=== PATIENT | male | born 1995 | race Caucasian/White ===

== ENCOUNTER 2017-02-11 16:44 | Emergency (ER) | payer MEDICAID ==
[~2017-02-11] VITALS: Ht 177.8 cm; Wt 73.0 kg
[2017-02-12] MEDS ORDERED: IBUPROFEN 600MG TABLET PO ONE (02:00)
[2017-02-12 04:39] VITALS: BP 125/80
== END 2017-02-12 05:00 | disposition home or self-care (01) ==
LOC: ER 16:48
DX: S80.02XA Contusion of left knee, initial encounter (principal); W22.8XXA Striking against or struck by other objects, initial encounter; Y93.89 Activity, other specified; Y92.252 Music hall as the place of occurrence of the external cause; R03.0 Elevated blood-pressure reading, without diagnosis of hypertension
CPT/HCPCS: 73562; 99284; Z7610

== ENCOUNTER 2017-03-07 05:29 | Emergency (ER) | payer MEDICAID ==
[~2017-03-07] VITALS: Ht 177.8 cm; Wt 75.0 kg
[2017-03-07] MEDS ORDERED: SODIUM CHLORIDE 0.9% 1,000 ML IV ONE (06:19)
[2017-03-07 07:04] LABS: CLARITY URINE CLEAR (CLEAR); COLOR URINE YELLOW (YELLOW); GLUCOSE URINE NEGATIVE (NEGATIVE); KETONES URINE TRACE (NEGATIVE); LEUKOCYTE ESTERASE URINE NEGATIVE (NEGATIVE); NITRITE URINE NEGATIVE (NEGATIVE); OCCULT BLOOD URINE NEGATIVE (NEGATIVE); PH URINE 6.5 (4.5-8.0); PROTEIN URINE TRACE (NEGATIVE); SPECIFIC GRAVITY URINE 1.024 (1.005-1.030)
[2017-03-07 07:15] LABS: *AMPHETAMINES SCREEN URINE NEGATIVE (NEGATIVE); *BARBITURATES SCREEN URINE NEGATIVE (NEGATIVE); *BENZODIAZEPINES SCREEN URINE PRESUMTIVE POSITIVE (NEGATIVE); *COCAINE SCREEN URINE NEGATIVE (NEGATIVE); CANNABINOID URINE SCREEN PRESUMTIVE POSITIVE (NEGATIVE); METHADONE URINE SCREEN NEGATIVE (NEGATIVE); OPIATES URINE SCREEN NEGATIVE (NEGATIVE); PHENCYCLIDINE URINE SCREEN NEGATIVE (NEGATIVE)
[2017-03-07 07:16] LABS: BASOPHILS % 0.7 % (0.0-2.0); EOSINOPHILS % 1.2 % (0.0-5.0); HEMATOCRIT. 44.4 % (42.0-52.0); HEMOGLOBIN. 15.7 g/dL (14.0-18.0); MEAN CORPUSCULAR HEMOGLOBIN 32.5 pg (28.0-32.0); MEAN CORPUSCULAR VOLUME 91.7 fL (80.0-94.0); MEAN PLATELET VOLUME 8.3 fl (7.4-10.4); MONOCYTES % 13.4 % (2.0-8.0); NEUTROPHILS % 67.7 % (40.0-76.0); PLATELET 217 x1000/uL (130-400); RED BLOOD CELL COUNT 4.84 mill/uL (4.7-6.1); RED CELL DISTRIBUTION WIDTH 11.8 % (11.6-14.6)
[2017-03-07 07:30] LABS: CARBON DIOXIDE 29 mEq/L (21-32); CHLORIDE 106 mEq/L (98-107); ETHANOL BLOOD < 10 mg/dL
[2017-03-07 10:30] VITALS: BP 120/65
== END 2017-03-07 10:52 | disposition home or self-care (01) ==
LOC: ER 05:29
DX: F13.10 Sedative, hypnotic or anxiolytic abuse, uncomplicated (principal); R56.9 Unspecified convulsions; F12.10 Cannabis abuse, uncomplicated; R51 Headache; F17.210 Nicotine dependence, cigarettes, uncomplicated
CPT/HCPCS: 36415; 70450; 80053; 80305; 81001; 85025; 96360; 99285; 99406; G0482; J7030; Z7610

== ENCOUNTER 2017-09-07 00:10 | Emergency (ER) | payer MEDICAID ==
[~2017-09-07] VITALS: Ht 172.7 cm; Wt 81.0 kg
[2017-09-07 01:22] LABS: BASOPHILS % 1.1 % (0.0-2.0); EOSINOPHILS % 2.6 % (0.0-5.0); HEMATOCRIT. 49.3 % (42.0-52.0); HEMOGLOBIN. 17.2 g/dL (14.0-18.0); LYMPHOCYTES % 35.3 % (20.0-50.0); MEAN CORPUSCULAR HEMOGLOBIN 32.2 pg (28.0-32.0); MEAN CORPUSCULAR VOLUME 92.4 fL (80.0-94.0); MEAN PLATELET VOLUME 8.5 fl (7.4-10.4); MONOCYTES % 12.3 % (2.0-8.0); NEUTROPHILS % 48.7 % (40.0-76.0); PLATELET 265 x1000/uL (130-400); RED BLOOD CELL COUNT 5.33 mill/uL (4.7-6.1); RED CELL DISTRIBUTION WIDTH 13.1 % (11.6-14.6)
[2017-09-07 01:28] LABS: CHLORIDE 108 mEq/L (98-107)
[2017-09-07 01:30] LABS: PROTHROMBIN TIME 10.6 sec (9.4-11.6)
[2017-09-07 01:38] LABS: AMMONIA 28 uMol/L (<32)
[2017-09-07 01:39] LABS: CREATINE KINASE 158 IU/L (39-308)
[2017-09-07 01:50] LABS: CARBAMAZEPINE < 0.5 ug/mL (4-12); ETHANOL BLOOD 306 mg/dL
[2017-09-07 01:59] LABS: PHENOBARBITAL < 2.1 ug/mL (15.0-40.0)
[2017-09-07] MEDS ORDERED: LEVETIRACETAM 1000MG/100ML 100 ML IV ONE (02:00)
[2017-09-07 05:44] VITALS: BP 116/72
== END 2017-09-07 05:46 | disposition home or self-care (01) ==
LOC: ER 00:10
DX: T51.0X1A Toxic effect of ethanol, accidental (unintentional), initial encounter (principal); G40.909 Epilepsy, unspecified, not intractable, without status epilepticus; E87.2 Acidosis; Z91.14 Patient's other noncompliance with medication regimen
CPT/HCPCS: 36415; 70450; 71045; 80053; 80156; 80165; 80184; 80185; 82140; 82550; 83605; 83690; 84443; 84484; 85025; 85610; 93005; 96365; 99285; G0482; J1953

== ENCOUNTER 2019-08-01 14:23 | Emergency (ER) | payer MEDICAID ==
[~2019-08-01] VITALS: Ht 182.9 cm; Wt 104.0 kg
[2019-08-01] MEDS ORDERED: SODIUM CHLORIDE 0.9% 1,000 ML IV ONE (14:39)
[2019-08-01] MEDS ORDERED: CHLORDIAZEPOXIDE 25MG CAPSULE PO ONE (14:45)
[2019-08-01] MEDS ORDERED: LORAZEPAM 2MG/ML CPJ IV ONE (14:45)
[2019-08-01 15:00] LABS: BASOPHILS % 0.6 % (0.0-2.0); EOSINOPHILS % 0.4 % (0.0-5.0); HEMATOCRIT. 56.6 % (42.0-52.0); HEMOGLOBIN. 19.5 g/dL (14.0-18.0); LYMPHOCYTES % 19.4 % (20.0-50.0); MEAN CORPUSCULAR HEMOGLOBIN 31.6 pg (28.0-32.0); MEAN CORPUSCULAR VOLUME 91.8 fL (80.0-94.0); MEAN PLATELET VOLUME 8.6 fl (7.4-10.4); NEUTROPHILS % 65.6 % (40.0-76.0); PLATELET 414 x1000/uL (130-400); RED BLOOD CELL COUNT 6.16 mill/uL (4.7-6.1); RED CELL DISTRIBUTION WIDTH 12.5 % (11.6-14.6)
[2019-08-01 15:02] LABS: CHLORIDE 103 mEq/L (98-107)
[2019-08-01 15:06] LABS: ETHANOL BLOOD < 10 mg/dL
[2019-08-01 17:03] VITALS: BP 117/76
[2019-08-01 17:13] LABS: *AMPHETAMINES SCREEN URINE PRESUMTIVE POSITIVE (NEGATIVE); *BARBITURATES SCREEN URINE NEGATIVE (NEGATIVE); *BENZODIAZEPINES SCREEN URINE PRESUMTIVE POSITIVE (NEGATIVE); *COCAINE SCREEN URINE PRESUMTIVE POSITIVE (NEGATIVE); METHADONE URINE SCREEN NEGATIVE (NEGATIVE); OPIATES URINE SCREEN NEGATIVE (NEGATIVE)
[2019-08-01 17:14] LABS: CANNABINOID URINE SCREEN PRESUMTIVE POSITIVE (NEGATIVE); PHENCYCLIDINE URINE SCREEN NEGATIVE (NEGATIVE)
== END 2019-08-01 17:00 | disposition home or self-care (01) ==
LOC: ER 14:23
DX: G40.909 Epilepsy, unspecified, not intractable, without status epilepticus (principal); F10.239 Alcohol dependence with withdrawal, unspecified; Y90.0 Blood alcohol level of less than 20 mg/100 ml; F14.10 Cocaine abuse, uncomplicated; F15.10 Other stimulant abuse, uncomplicated; F12.90 Cannabis use, unspecified, uncomplicated
CPT/HCPCS: 36415; 80053; 80305; 80320; 85025; 96374; 99283; J2060; J7030; G0480

== ENCOUNTER 2019-08-31 13:14 | Inpatient (IN) | payer MEDICAID ==
[~2019-08-31] VITALS: Ht 170.2 cm; Wt 66.2 kg
[2019-08-31] MEDS ORDERED: SODIUM CHLORIDE 0.9% 1,000 ML IV ONE (13:46)
[2019-08-31] MEDS ORDERED: LORAZEPAM 2MG/ML CPJ IV ONE (14:00)
[2019-08-31] MEDS ORDERED: LEVETIRACETAM 1000MG/100ML 100 ML IV ONE (14:00)
[2019-08-31 14:59] LABS: CHLORIDE 105 mEq/L (98-107)
[2019-08-31 15:01] LABS: BASOPHILS % 0.3 % (0.0-2.0); HEMATOCRIT. 51.4 % (42.0-52.0); HEMOGLOBIN. 17.4 g/dL (14.0-18.0); LYMPHOCYTES % 11.8 % (20.0-50.0); MEAN CORPUSCULAR HEMOGLOBIN 31.4 pg (28.0-32.0); MEAN CORPUSCULAR VOLUME 92.5 fL (80.0-94.0); MEAN PLATELET VOLUME 8.9 fl (7.4-10.4); MONOCYTES % 9.8 % (2.0-8.0); NEUTROPHILS % 78.1 % (40.0-76.0); PLATELET 327 x1000/uL (130-400); RED BLOOD CELL COUNT 5.56 mill/uL (4.7-6.1)
[2019-08-31 15:06] LABS: ETHANOL BLOOD < 10 mg/dL
[2019-08-31 15:09] LABS: CREATINE KINASE 283 IU/L (39-308)
[2019-08-31 15:15] LABS: PHENOBARBITAL < 2.1 ug/mL (15.0-40.0); VALPROIC ACID < 3.0 ug/mL (50-100)
[2019-08-31 15:19] LABS: CLARITY URINE CLEAR (CLEAR); COLOR URINE YELLOW (YELLOW); KETONES URINE 3+ (NEGATIVE); LEUKOCYTE ESTERASE URINE NEGATIVE (NEGATIVE); NITRITE URINE NEGATIVE (NEGATIVE); OCCULT BLOOD URINE TRACE (NEGATIVE); PROTEIN URINE 2+ (NEGATIVE); UROBILINOGEN URINE 0.2 E.U./dL (0.2-1.0)
[2019-08-31] MEDS ORDERED: ACETAMINOPHEN 325MG TABLET PO PRN (15:30)
[2019-08-31] MEDS ORDERED: LORAZEPAM 2MG/ML CPJ IV PRN (15:30)
[2019-08-31] MEDS ORDERED: ONDANSETRON HCL 4MG/2ML INJ IV PRN (15:30)
[2019-08-31] MEDS ORDERED: LORAZEPAM 1MG TABLET PO ONE (15:30)
[2019-08-31] MEDS ORDERED: CHLORDIAZEPOXIDE 25MG CAPSULE PO ONE (15:30)
[2019-08-31 15:39] LABS: *AMPHETAMINES SCREEN URINE NEGATIVE (NEGATIVE); *BARBITURATES SCREEN URINE NEGATIVE (NEGATIVE); *BENZODIAZEPINES SCREEN URINE PRESUMTIVE POSITIVE (NEGATIVE); *COCAINE SCREEN URINE NEGATIVE (NEGATIVE); METHADONE URINE SCREEN NEGATIVE (NEGATIVE); OPIATES URINE SCREEN NEGATIVE (NEGATIVE)
[2019-08-31 15:40] LABS: CANNABINOID URINE SCREEN PRESUMTIVE POSITIVE (NEGATIVE); PHENCYCLIDINE URINE SCREEN NEGATIVE (NEGATIVE)
[2019-08-31 16:07] LABS: CARBAMAZEPINE < 0.5 ug/mL (4-12)
[2019-08-31] MEDS: SODIUM CHLORIDE 0.9% 1,000 ML IV SCH (16:14)
[2019-08-31] MEDS ORDERED: MVI, ADULT NO.1 10 ML, FOLIC ACID 1 MG, THIAMINE HCL 100 MG in SODIUM CHLORIDE 0.9% 1,0... IV ONE ×4 (16:30)
[2019-08-31] MEDS: HEPARIN 5000 UNITS/ML VIAL SUBCUT SCH (21:59)
[2019-09-01] MEDS: CHLORDIAZEPOXIDE 25MG CAPSULE PO SCH ×3 (00:32→13:47)
[2019-09-01] MEDS: SODIUM CHLORIDE 0.9% 1,000 ML IV SCH (04:04)
[2019-09-01 05:52] LABS: BASOPHILS % 0.7 % (0.0-2.0); EOSINOPHILS % 1.4 % (0.0-5.0); HEMATOCRIT. 44.4 % (42.0-52.0); HEMOGLOBIN. 15.5 g/dL (14.0-18.0); LYMPHOCYTES % 29.2 % (20.0-50.0); MEAN CORPUSCULAR HEMOGLOBIN 32.1 pg (28.0-32.0); MEAN CORPUSCULAR VOLUME 92.2 fL (80.0-94.0); MEAN PLATELET VOLUME 8.7 fl (7.4-10.4); MONOCYTES % 14.5 % (2.0-8.0); NEUTROPHILS % 54.2 % (40.0-76.0); PLATELET 229 x1000/uL (130-400); RED BLOOD CELL COUNT 4.82 mill/uL (4.7-6.1); RED CELL DISTRIBUTION WIDTH 12.8 % (11.6-14.6)
[2019-09-01 05:59] LABS: CHLORIDE 110 mEq/L (98-107)
[2019-09-01] MEDS ORDERED: POTASSIUM CHLORIDE 20MEQ TABLET SR PO SCH (09:00)
[2019-09-01] MEDS ORDERED: FOLIC ACID 1MG TABLET PO SCH (09:00)
[2019-09-01] MEDS ORDERED: MULTIVITAMINS,THER W-MINERALS TABLET PO SCH (09:00)
[2019-09-01] MEDS ORDERED: THIAMINE HCL 100MG TABLET PO SCH (09:00)
[2019-09-01 09:24] VITALS: BP 130/89
[2019-09-01 09:27] VITALS: BP 130/89
[2019-09-01] MEDS: HEPARIN 5000 UNITS/ML VIAL SUBCUT SCH (10:08)
[2019-09-01] MEDS ORDERED: L25 PO (11:46)
[2019-09-01 12:00] VITALS: BP 128/84
[2019-09-01] MEDS ORDERED: PNEUMOCOCCAL 23-VAL P-SAC VAC 0.5 ML IM ONE (12:00)
[2019-09-01] MEDS ORDERED: INFLUENZA VIRUS VACCINE(AFLURIA) 0.5ML SYR IM ONE (12:00)
[2019-09-01 15:19] VITALS: BP 128/84
== END 2019-09-01 15:45 | disposition home or self-care (01) | DRG 53 ==
LOC: ER 13:14 → EDBEDREQ 15:26 → EDBEDREQTM 15:26 → 5WST 15:37 → EDBEDREQ 15:41 → EDBEDREQTM 15:41 → ENRESERV 09-01 08:39
PROVIDERS: ADMIT Internal Medicine; ATTEND Internal Medicine
DX: G40.89 Other seizures (principal); E87.2 Acidosis; R74.0 Nonspecific elevation of levels of transaminase and lactic acid dehydrogenase [LDH]; F10.10 Alcohol abuse, uncomplicated; F12.90 Cannabis use, unspecified, uncomplicated; Z91.19 Patient's noncompliance with other medical treatment and regimen; Z71.41 Alcohol abuse counseling and surveillance of alcoholic; Z79.899 Other long term (current) drug therapy
CPT/HCPCS: 36415; 71045; 80053; 80156; 80165; 80184; 80185; 80305; 80320; 81003; 82550; 82962; 83036; 83735; 83880; 84443; 84484; 85025; 90686; 90732; 93005; 97161; 99291; J1644; J1953; J2060; J3411; J3490; J7030; G0480

== ENCOUNTER 2019-12-23 22:16 | Emergency (ER) | payer MEDICAID ==
[~2019-12-23] VITALS: Ht 177.8 cm; Wt 91.0 kg
[~2019-12-23 22:16] MED LIST: L25 PO
[2019-12-24] MEDS ORDERED: IBUPROFEN 600MG TABLET PO ONE (00:15)
[2019-12-24 00:17] VITALS: BP 125/68
== END 2019-12-24 00:30 | disposition home or self-care (01) ==
LOC: ER 22:16
DX: M25.572 Pain in left ankle and joints of left foot (principal); R26.2 Difficulty in walking, not elsewhere classified; M25.562 Pain in left knee; S05.12XA Contusion of eyeball and orbital tissues, left eye, initial encounter; R03.0 Elevated blood-pressure reading, without diagnosis of hypertension; X58.XXXA Exposure to other specified factors, initial encounter; Y93.9 Activity, unspecified; Y92.9 Unspecified place or not applicable
CPT/HCPCS: 73562; 73610; 93005; 99284

== ENCOUNTER 2020-10-19 15:54 | Emergency (ER) | payer MEDICAID ==
[~2020-10-19] VITALS: Ht 177.8 cm; Wt 104.0 kg
[2020-10-19] MEDS ORDERED: SODIUM CHLORIDE 0.9% 1,000 ML IV ONE (16:00)
[2020-10-19] MEDS ORDERED: NALOXONE HCL 0.4 MG/ML 1ML VIAL IV ONE (16:00)
[2020-10-19 16:23] LABS: BASOPHILS % 0.9 % (0.0-2.0); HEMATOCRIT. 48.3 % (42.0-52.0); HEMOGLOBIN. 16.8 g/dL (14.0-18.0); MEAN CORPUSCULAR HEMOGLOBIN 32.6 pg (28.0-32.0); MEAN CORPUSCULAR VOLUME 93.7 fL (80.0-94.0); MEAN PLATELET VOLUME 9.1 fl (7.4-10.4); NEUTROPHILS % 34.1 % (40.0-76.0); PLATELET 283 x1000/uL (130-400); RED BLOOD CELL COUNT 5.15 mill/uL (4.7-6.1); RED CELL DISTRIBUTION WIDTH 13.5 % (11.6-14.6)
[2020-10-19 16:26] LABS: CHLORIDE 107 mEq/L (98-107)
[2020-10-19 16:32] LABS: ETHANOL BLOOD 112 mg/dL
[2020-10-19 17:27] LABS: CLARITY URINE CLEAR (CLEAR); COLOR URINE YELLOW (YELLOW); KETONES URINE NEGATIVE (NEGATIVE); LEUKOCYTE ESTERASE URINE NEGATIVE (NEGATIVE); NITRITE URINE NEGATIVE (NEGATIVE); OCCULT BLOOD URINE NEGATIVE (NEGATIVE); PH URINE 5.5 (4.5-8.0); PROTEIN URINE NEGATIVE (NEGATIVE); SPECIFIC GRAVITY URINE 1.005 (1.005-1.030); UROBILINOGEN URINE 0.2 E.U./dL (0.2-1.0)
[2020-10-19 17:36] LABS: *BENZODIAZEPINES SCREEN URINE PRESUMTIVE POSITIVE (NEGATIVE); *COCAINE SCREEN URINE NEGATIVE (NEGATIVE); METHADONE URINE SCREEN NEGATIVE (NEGATIVE); OPIATES URINE SCREEN NEGATIVE (NEGATIVE)
[2020-10-19 17:37] LABS: *AMPHETAMINES SCREEN URINE NEGATIVE (NEGATIVE); *BARBITURATES SCREEN URINE NEGATIVE (NEGATIVE); CANNABINOID URINE SCREEN PRESUMTIVE POSITIVE (NEGATIVE); PHENCYCLIDINE URINE SCREEN NEGATIVE (NEGATIVE)
[2020-10-19] MEDS ORDERED: NALO4SPR BOTHNSTRLS (19:51)
[2020-10-19 21:55] VITALS: BP 121/82
== END 2020-10-19 22:09 | disposition home or self-care (01) ==
LOC: ER 15:54
DX: T65.92XA Toxic effect of unspecified substance, intentional self-harm, initial encounter (principal); F17.200 Nicotine dependence, unspecified, uncomplicated; F11.10 Opioid abuse, uncomplicated; Y92.9 Unspecified place or not applicable
CPT/HCPCS: 36415; 80053; 80305; 80307; 80320; 80329; 81003; 82962; 85025; 93005; 96360; 99284; J7030; G0480

== ENCOUNTER 2020-10-21 00:11 | Emergency (ER) | payer MEDICAID ==
[~2020-10-21] VITALS: Ht 182.9 cm; Wt 109.0 kg
[~2020-10-21 00:11] MED LIST changes: +NALO4SPR BOTHNSTRLS
[2020-10-21] MEDS ORDERED: SODIUM CHLORIDE 0.9% 1,000 ML IV ONE (00:45)
[2020-10-21 00:49] LABS: BASOPHILS % 0.9 % (0.0-2.0); EOSINOPHILS % 2.2 % (0.0-5.0); HEMATOCRIT. 44.4 % (42.0-52.0); HEMOGLOBIN. 15.1 g/dL (14.0-18.0); LYMPHOCYTES % 41.5 % (20.0-50.0); MEAN CORPUSCULAR HEMOGLOBIN 32.3 pg (28.0-32.0); MEAN PLATELET VOLUME 9.3 fl (7.4-10.4); MONOCYTES % 5.5 % (2.0-8.0); NEUTROPHILS % 49.9 % (40.0-76.0); PLATELET 230 x1000/uL (130-400); RED BLOOD CELL COUNT 4.68 mill/uL (4.7-6.1); RED CELL DISTRIBUTION WIDTH 13.5 % (11.6-14.6)
[2020-10-21 00:58] LABS: CHLORIDE 107 mEq/L (98-107)
[2020-10-21 01:01] LABS: ETHANOL BLOOD < 10 mg/dL
[2020-10-21] MEDS ORDERED: NALO4SPR BOTHNSTRLS (02:15)
[2020-10-21 02:40] VITALS: BP 135/97
== END 2020-10-21 02:54 | disposition home or self-care (01) ==
LOC: ER 00:11
DX: R09.2 Respiratory arrest (principal); I48.91 Unspecified atrial fibrillation; F14.10 Cocaine abuse, uncomplicated; F11.10 Opioid abuse, uncomplicated; Z86.59 Personal history of other mental and behavioral disorders
CPT/HCPCS: 36415; 80053; 80320; 85025; 93005; 96360; 99291; J7030; 99284; G0480

== ENCOUNTER 2024-05-05 01:23 | Emergency (ER) | payer MEDICAID ==
[~2024-05-05] VITALS: Ht 177.8 cm; Wt 130.0 kg
[~2024-05-05 01:23] MED LIST changes: +FOLI-43 PO; -L25 PO; +LOSA25TA26 MT; +METO25TA6 PO; -NALO4SPR BOTHNSTRLS; +ONDA-239 PO; +THIA100T72 PO
[2024-05-05 01:34] VITALS: TEMP 98.8; O2SAT 98
[2024-05-05] MEDS ORDERED: ONDANSETRON HCL 4MG/2ML INJ IV STA (02:19)
[2024-05-05] MEDS ORDERED: SODIUM CHLORIDE 0.9% 1,000 ML IV ONE (02:30)
[2024-05-05 03:09] LABS: CHLORIDE 104 mEq/L (98-107); POTASSIUM 3.4 mEq/L (3.5-5.1); SODIUM 140 mEq/L (136-145)
[2024-05-05 03:10] LABS: CALCIUM 9.3 mg/dL (8.7-10.4); CARBON DIOXIDE 20 mEq/L (21-32)
[2024-05-05 03:15] LABS: CREATININE 0.7 mg/dL (0.6-1.3); GLUCOSE 113 mg/dL (70-105)
[2024-05-05 03:18] LABS: BASOPHILS % 1.1 % (0.0-2.0); EOSINOPHILS % 2.2 % (0.0-5.0); HEMATOCRIT. 53.1 % (42.0-52.0); HEMOGLOBIN. 17.9 g/dL (14.0-18.0); LYMPHOCYTES % 26.1 % (20.0-50.0); MEAN CORPUSCULAR HEMOGLOBIN 32.5 pg (28.0-32.0); MEAN CORPUSCULAR HGB CONC 33.7 g/dL (31.0-37.0); MEAN CORPUSCULAR VOLUME 96.6 fL (80.0-94.0); MONOCYTES % 9.2 % (2.0-8.0); NEUTROPHILS % 61.4 % (40.0-76.0); PLATELET 243 x1000/uL (130-400); RED CELL DISTRIBUTION WIDTH 13.2 % (11.6-14.6); WHITE BLOOD COUNT 8.5 x1000/uL (4.5-11.0)
[2024-05-05 03:25] LABS: ETHANOL BLOOD 361 mg/dL (<10)
[2024-05-05 03:50] LABS: UREA NITROGEN BLOOD < 5 mg/dL (9-23)
[2024-05-05 06:03] VITALS: BP 140/93; PULSE 99; RESP 18; O2SAT 99
== END 2024-05-05 06:08 | disposition home or self-care (01) ==
LOC: ER 01:23
DX: F10.10 Alcohol abuse, uncomplicated (principal); F14.10 Cocaine abuse, uncomplicated; F11.10 Opioid abuse, uncomplicated; Z79.899 Other long term (current) drug therapy; Z86.59 Personal history of other mental and behavioral disorders; Y90.8 Blood alcohol level of 240 mg/100 ml or more
CPT/HCPCS: 80048; 80320; 83690; 85025; 36415; 74176; 99284; J7030; G0480

== ENCOUNTER 2024-12-07 22:46 | Emergency (ER) | payer MEDICAID ==
[~2024-12-07] VITALS: Ht 172.7 cm; Wt 100.0 kg
[2024-12-07 22:52] VITALS: O2SAT 96
[2024-12-07 23:50] VITALS: BP 150/96; PULSE 118; RESP 13; TEMP 36.9; O2SAT 95
== END 2024-12-08 00:05 | disposition left against medical advice (07) ==
LOC: ER 22:46
DX: R56.9 Unspecified convulsions (principal); F10.90 Alcohol use, unspecified, uncomplicated; F14.90 Cocaine use, unspecified, uncomplicated; F11.90 Opioid use, unspecified, uncomplicated; Z73.3 Stress, not elsewhere classified; R45.851 Suicidal ideations; Z79.899 Other long term (current) drug therapy; Y90.9 Presence of alcohol in blood, level not specified
CPT/HCPCS: 99283

== ENCOUNTER → 2024-12-07 | Emergency (ER) | payer MEDICAID ==
[~2024-12-07] VITALS: Ht 172.7 cm; Wt 100.0 kg
[2024-12-07 22:46] VITALS: BP 143/96; PULSE 116; RESP 18; TEMP 36.6; O2SAT 96
== END ==
LOC: ER 22:44
DX: R56.9 Unspecified convulsions (principal); Z53.21 Procedure and treatment not carried out due to patient leaving prior to being seen by health care provider
CPT/HCPCS: 82962